=== PATIENT | male | born 1975 | race Caucasian/White ===

== ENCOUNTER 2020-09-20 13:21 | Emergency (ER) | payer OTHER ==
[2020-09-20 15:18] LABS: HEMOGLOBIN 15.5 gm/dl (14.0-17.5); RED BLOOD COUNT 5.35 M/UL (4.20-5.50); WHITE BLOOD COUNT 9.3 K/UL (4.5-11.0)
[2020-09-20 15:37] LABS: BUN/CREATININE RATIO 11 (0-10)
[2020-09-20] MEDS ORDERED: HYDROCHLOROTHIA25 MG PO (15:59)
== END 2020-09-20 16:23 | disposition home or self-care (01) ==
LOC: ER1 13:21
PROVIDERS: Preventive Medicine Occupational Medicine
DX: I87.2 Venous insufficiency (chronic) (peripheral) (principal); I10 Essential (primary) hypertension; F17.200 Nicotine dependence, unspecified, uncomplicated
CPT/HCPCS: 71045; 80053; 81001; 82550; 82553; 83036; 83605; 83690; 83874; 83880; 84484; 84550; 85025; 85652; 86140; 87086; 93005; 96374; 99284; J1940